=== PATIENT | female | born 1990 | race Two or more races ===

== ENCOUNTER → 2019-09-14 | Outpatient (CLI) | payer OTHER | END | disposition home or self-care (01) | LOC: PRENATAL 13:00 | DX: O36.80X0 Pregnancy with inconclusive fetal viability, not applicable or unspecified (principal); Z36.82 Encounter for antenatal screening for nuchal translucency ==

== ENCOUNTER → 2019-10-26 | Outpatient (CLI) | payer OTHER | END | disposition home or self-care (01) | LOC: PRENATAL 08:00 | DX: O35.3XX1 Maternal care for (suspected) damage to fetus from viral disease in mother, fetus 1 (principal); O99.212 Obesity complicating pregnancy, second trimester; O30.92 Multiple gestation, unspecified, second trimester ==

== ENCOUNTER 2020-03-15 11:29 | Inpatient (IN) | payer OTHER ==
[~2020-03-15] VITALS: Ht 152.4 cm; Wt 79.8 kg
[2020-03-15] MEDS ORDERED: PRENATAL CAPLE1 EAC1 PO (12:19)
[2020-03-17] MEDS ORDERED: IBUPROFEN800 MG PO (13:44)
== END 2020-03-17 14:19 | disposition home or self-care (01) | DRG 806 ==
LOC: LDR 11:29 → SURG-SUITE 18:06
PROVIDERS: ADMIT Obstetrics & Gynecology
PROC: 10E0XZZ Delivery of Products of Conception, External Approach (ICD-10-PCS; principal; 2020-03-15)
PROC: 0KQM0ZZ Repair Perineum Muscle, Open Approach (ICD-10-PCS; 2020-03-15)
PROC: 3E0P7VZ Introduction of Hormone into Female Reproductive, Via Natural or Artificial Opening (ICD-10-PCS; 2020-03-15)
PROC: 3E033VJ Introduction of Other Hormone into Peripheral Vein, Percutaneous Approach (ICD-10-PCS; 2020-03-15)
PROC: 4A1HXCZ Monitoring of Products of Conception, Cardiac Rate, External Approach (ICD-10-PCS; 2020-03-15)
DX: O70.1 Second degree perineal laceration during delivery (principal); O41.03X0 Oligohydramnios, third trimester, not applicable or unspecified; Z37.0 Single live birth; Z3A.40 40 weeks gestation of pregnancy